=== PATIENT | female | born 1960 | race African-American/Black ===

== ENCOUNTER 2021-06-09 14:43 | Emergency (ER) | payer MEDICARE ==
[~2021-06-09] VITALS: Ht 170.2 cm; Wt 90.3 kg
[2021-06-09 16:18] LABS: ABSOLUTE NEUTROPHILS 4.8 thou/uL (1.4-8.2); BASOPHILS 0.8 % (0.0-2.0); EOSINOPHILS 3.3 % (0.0-3.0); HEMATOCRIT 42.1 % (37.0-47.0); HEMOGLOBIN 13.9 gm/dL (12.0-15.0); MCH 29.4 pg (26.0-34.0); MCHC 32.9 g/dL (28.0-37.0); MCV 89.2 fL (80.0-100.0); MONOCYTES 7.5 % (1.0-8.0); POLYS 64.4 % (36.0-66.0); RBC 4.72 mil/uL (4.20-5.00); RDW 14.7 % (10.5-14.5); WBC 7.5 thou/uL (4.0-11.0)
[2021-06-09 16:30] LABS: CALCIUM 9.9 mg/dL (8.5-10.1); CREATININE 0.7 mg/dL (0.6-1.0)
[2021-06-09 16:42] LABS: ALBUMIN 4.2 g/dL (3.4-5.0); TOTAL BILIRUBIN 0.3 mg/dL (0.2-1.0); TOTAL PROTEIN 7.9 g/dL (6.4-8.2)
[2021-06-09 17:02] LABS: LARGE PLATELETS SEVERAL
[2021-06-09 17:28] LABS: PLATELET COUNT 170 thou/uL (150-400)
[2021-06-09 17:56] VITALS: BP 141/50
--- NOTE | 2021-06-10 07:49 | EKG ---
[facility] [place] [address] ELECTROCARDIOGRAM REPORT Name: JHONATHAN FREED Room #: [facility] [id number] Admission: 06/09/21 Attend Phys: Discharge: 06/09/21 Date of : 64 Report #: [id number] [facility] ED Test Date: 2021-06-09 Test Time: 14:50:15 Pat Name: JHONATHAN FREED Department: Room: Gender: F Business Management Intern: KATLYN : 1960 Requested By: Pham Garrison Order Number: [id number] MD: Jamie Hobson Measurements Intervals [place] Rate: 66 P: CT: QRS: 23 QRSD: 118 T: 31 QT: 460 QTc: 482 Interpretive Statements Sinus rhythm Nonspecific T wave abnormality Baseline wander in lead(s) II,III,aVF,V1 No previous ECG available for comparison Electronically Signed On 06-10-2021 7:49:04 [employer] by Jamie Hobson [email or web address] <ELECTRONICALLY SIGNED> By: Jamie Hobson MD, [facility] 06/10/21 0749 1450 1450 Jamie Hobson MD, FACC /EPI
== END 2021-06-09 17:58 | disposition home or self-care (01) ==
LOC: ER 14:43
PROVIDERS: Emergency Medicine
DX: R07.89 Other chest pain (principal); R51.9 Headache, unspecified; I10 Essential (primary) hypertension; Z98.890 Other specified postprocedural states; Z88.5 Allergy status to narcotic agent